=== PATIENT | male | born 1990 | race Caucasian/White ===

== ENCOUNTER 2018-10-23 17:30 | Emergency (ER) | payer OTHER ==
[~2018-10-23] VITALS: Ht 190.5 cm; Wt 127.0 kg
[~2018-10-23 17:30] MED LIST: FLONASE16 GM NS; OMNICEF250 MG/5 M PO
[2018-10-23] MEDS ORDERED: LISINOPRIL10 MG PO (17:46)
[2018-10-23] MEDS ORDERED: NORCO 5-325 TA1 EACH PO (19:03)
[2018-10-23] MEDS ORDERED: FLEXERIL PO (19:03)
[2018-10-23] MEDS ORDERED: NAPROSYN500 MG PO (19:03)
[2018-10-23 19:20] VITALS: BP 133/77
== END 2018-10-23 19:23 | disposition home or self-care (01) ==
LOC: M.ERS 17:30
DX: S39.012A Strain of muscle, fascia and tendon of lower back, initial encounter (principal); I10 Essential (primary) hypertension; Z88.0 Allergy status to penicillin; Z88.1 Allergy status to other antibiotic agents; W18.39XA Other fall on same level, initial encounter; Y92.89 Other specified places as the place of occurrence of the external cause; Y93.89 Activity, other specified; Y99.8 Other external cause status

== ENCOUNTER 2019-01-21 12:05 | Emergency (ER) | payer OTHER ==
[~2019-01-21] VITALS: Ht 190.5 cm; Wt 127.0 kg
[~2019-01-21 12:05] MED LIST changes: +FLEXERIL PO; +LISINOPRIL10 MG PO; +NAPROSYN500 MG PO; +NORCO 5-325 TA1 EACH PO
[2019-01-21 13:33] LABS: NUCLEATED RBCS 0 /100WBC; WBC 14.2 thou/uL (4.0-11.0)
[2019-01-21 13:35] LABS: ABSOLUTE BASOPHILS 0.1 thou/uL (0.0-0.2); ABSOLUTE EOSINOPHILS 0.3 thou/uL (0.0-0.7); ABSOLUTE LYMPHOCYTES 2.8 thou/uL (0.8-5.3); ABSOLUTE MONOCYTES 1.7 thou/uL (0.0-1.2); ABSOLUTE NEUTROPHILS 9.3 thou/uL (1.6-8.1); BASOPHILS 0.8 %; EOSINOPHILS 1.8 %; HEMATOCRIT 42.9 % (42.0-52.0); HEMOGLOBIN 14.2 gm/dL (14.0-18.0); LYMPHOCYTES 19.6 %; MCH 27.7 pg (26.0-34.0); MCHC 33.2 g/dL (28.0-37.0); MCV 83.3 fL (80.0-100.0); MONOCYTES 12.1 %; MPV 7.7 fl. (7.2-11.1); PLATELET COUNT* 329 thou/uL (150-400); POLYS 65.7 %; RBC 5.14 mil/uL (4.50-6.00); RDW-CV 13.6 % (10.5-14.5)
[2019-01-21 13:47] LABS: ANION GAP 8 mmol/L (7-16); BUN 14 mg/dL (7-18); CALCIUM 8.8 mg/dL (8.5-10.1); CHLORIDE 101 mmol/L (98-107); CO2 27 mmol/L (21-32); GLUCOSE 94 mg/dL (70-99); POTASSIUM 3.7 mmol/L (3.5-5.1); SODIUM 136 mmol/L (136-145)
[2019-01-21 13:49] LABS: APTT 27.8 Seconds (25.0-31.3); PROTIME 10.2 Seconds (9.20-11.50)
[2019-01-21 13:58] LABS: ALBUMIN 3.3 g/dL (3.4-5.0); ALKALINE PHOSPHATASE 107 U/L (46-116); NT-PRO BRAIN NAT PEPTIDE 50 pg/mL (<300); SGOT 20 U/L (15-37); SGPT 88 U/L (30-65); TOTAL BILIRUBIN 0.6 mg/dL (<0.1-1.0); TOTAL PROTEIN 7.2 g/dL (6.4-8.2); TROPONIN-I LEVEL <0.06 ng/mL (<0.06)
[2019-01-21] MEDS ORDERED: VENTOLIN HFA 1818 GM INH (14:51)
[2019-01-21] MEDS ORDERED: LEVAQUIN 500 M500 M2 PO (14:51)
[2019-01-21] MEDS ORDERED: NAPROSYN500 MG PO (14:51)
--- NOTE | 2019-01-21 15:24 | EKG ---
[place] [address] ELECTROCARDIOGRAM REPORT Name: RITO DOMINGUEZ Room: [facility]#: [id number] Admission: 01/21/19 Attend Phys: Discharge: Date of : 89 Report #: [id number] THIS REPORT FOR: //name// [facility] ED Test Date: 2019-01-21 Test Time: 13:03:04 Pat Name: RITO DOMINGUEZ Department: Room: Gender: M [employer]: : 1990 Requested By: Gwen Cyr Order Number: [id number] MD: Rolan Seals Measurements Intervals [place] Rate: 94 P: 46 ID: [id number] QRS: 3 QRSD: 84 T: 19 QT: 324 QTc: 406 Interpretive Statements Sinus rhythm Inferior infarct, old Compared to ECG 06/23/2009 18:54:29 Myocardial infarct finding now present Electronically Signed On 01-21-2019 15:24:33 CDT by Rolan Seals [email or web address] <ELECTRONICALLY SIGNED> By: Rolan Seals MD, [facility] 01/21/19 1524 1303 1303 Rolan Seals MD, FACC /EPI
[2019-01-21 16:40] VITALS: BP 136/74
== END 2019-01-21 16:41 | disposition home or self-care (01) ==
LOC: M.ERS 12:05
PROVIDERS: Nurse Practitioner Family
DX: J18.1 Lobar pneumonia, unspecified organism (principal); R42 Dizziness and giddiness; I10 Essential (primary) hypertension; G47.30 Sleep apnea, unspecified; Z88.0 Allergy status to penicillin; Z88.1 Allergy status to other antibiotic agents

== ENCOUNTER → 2020-06-02 | Outpatient (CLI) | payer OTHER ==
[~2020-06-02] MED LIST changes: +ABILIFY30 MG PO; +DRIZALMA SPRINK40 MG PO; +LEVAQUIN 500 M500 M2 PO; +LEVO-T50 MCG PO; +METFORMIN HCL500 M3 PO; +PRINIVIL20 M1 PO; +VENTOLIN HFA 1818 GM INH
== END ==
LOC: M.RAD 12:47
PROVIDERS: ATTEND Nurse Practitioner Family
DX: M51.37 Other intervertebral disc degeneration, lumbosacral region (principal); M25.78 Osteophyte, vertebrae; M54.5 Low back pain

== ENCOUNTER → 2020-06-26 | Outpatient (CLI) | payer OTHER | LOC: M.MRI 06-12 08:30 | PROVIDERS: ATTEND Nurse Practitioner Family | DX: K76.0 Fatty (change of) liver, not elsewhere classified (principal); R94.5 Abnormal results of liver function studies; M51.37 Other intervertebral disc degeneration, lumbosacral region; M48.061 Spinal stenosis, lumbar region without neurogenic claudication ==

== ENCOUNTER 2021-05-28 23:59 | Emergency (ER) | payer OTHER ==
[~2021-05-28] VITALS: Ht 190.5 cm; Wt 113.4 kg
[2021-05-29] MEDS ORDERED: DEPAKOTE250 MG PO (00:27)
[2021-05-29 01:12] LABS: URINE BILIRUBIN NEGATIVE (Negative); URINE BLOOD NEGATIVE (Negative); URINE CLARITY CLEAR; URINE COLOR YELLOW; URINE GLUCOSE-RANDOM NEGATIVE (Negative); URINE KETONES NEGATIVE (Negative); URINE LEUKOCYTES-REFLEX NEGATIVE (Negative); URINE NITRITE-REFLEX NEGATIVE (Negative); URINE PROTEIN NEGATIVE (Negative); URINE UROBILINOGEN 0.2 E.U./dl (0.2-1.0)
[2021-05-29 01:19] LABS: AMP/METHAMP Negative (Negative); BARBITURATES Negative (Negative); BENZODIAZEPINES Negative (Negative); COCAINE Negative (Negative); METHADONE Negative (Negative); OPIATES Negative (Negative); PCP Negative (Negative); THC POSITIVE (Negative)
[2021-05-29] MEDS ORDERED: CYCLOBENZAPRINE5 MG PO (02:09)
[2021-05-29] MEDS ORDERED: HYDROCODON-ACE1 EAC8 PO (02:09)
[2021-05-29 02:26] VITALS: BP 152/78
== END 2021-05-29 02:28 | disposition home or self-care (01) ==
LOC: M.ERS 23:59
PROVIDERS: Personal Emergency Response Attendant
DX: S33.5XXA Sprain of ligaments of lumbar spine, initial encounter (principal); J45.901 Unspecified asthma with (acute) exacerbation; G89.29 Other chronic pain; M54.59 Other low back pain; I10 Essential (primary) hypertension; M19.90 Unspecified osteoarthritis, unspecified site; G47.30 Sleep apnea, unspecified; Z79.899 Other long term (current) drug therapy; Z88.0 Allergy status to penicillin; Z91.02 Food additives allergy status; W19.XXXA Unspecified fall, initial encounter; Y93.89 Activity, other specified; Y92.89 Other specified places as the place of occurrence of the external cause; Y99.8 Other external cause status